=== PATIENT | male | born 1975 | race Caucasian/White ===

== ENCOUNTER 2022-11-13 09:09 | Day surgery (SDC) | payer BC ==
[2022-11-09 09:49] VITALS: BMI 25.0
[2022-11-13 10:59] VITALS: TEMP 97.4
[2022-11-13 11:10] VITALS: BP 110/70; PULSE 74; RESP 18
== END 2022-11-13 11:19 | disposition home or self-care (01) ==
LOC: FASU-ENDO 09:09
PROVIDERS: ATTEND Internal Medicine Gastroenterology
PROC: 0DJD8ZZ Inspection of Lower Intestinal Tract, Via Natural or Artificial Opening Endoscopic (ICD-10-PCS; principal; 2022-11-13 10:32)
DX: Z12.11 Encounter for screening for malignant neoplasm of colon (principal); K64.0 First degree hemorrhoids; K64.8 Other hemorrhoids